=== PATIENT | male | born 1995 | race Caucasian/White ===

== ENCOUNTER 2019-12-26 04:10 | Emergency (ER) | payer MEDICAID ==
[~2019-12-26] VITALS: Ht 182.9 cm; Wt 97.7 kg
[2019-12-26] MEDS ORDERED: PENICILLIN V POTASSIUM 500 MG TABLET PO ONE (07:00)
[2019-12-26 07:16] VITALS: BP 124/75
== END 2019-12-26 07:18 | disposition home or self-care (01) ==
LOC: EMS 04:16
DX: K04.7 Periapical abscess without sinus (principal); F19.90 Other psychoactive substance use, unspecified, uncomplicated